=== PATIENT | female | born 1950 | race Caucasian/White ===

== ENCOUNTER 2018-03-09 14:32 | Emergency (ER) | payer OTHER ==
[~2018-03-09] VITALS: Ht 162.6 cm; Wt 70.9 kg
[2018-03-09] MEDS ORDERED: QUET200T PO (14:40)
[2018-03-09] MEDS ORDERED: VITAD400 PO (14:40)
[2018-03-09] MEDS ORDERED: CALC-1038 PO (14:40)
[2018-03-09] MEDS ORDERED: SIMV-260 PO (14:40)
[2018-03-09] MEDS ORDERED: RISP1 PO (14:40)
[2018-03-09] MEDS ORDERED: SODIUM CHLORIDE 0.9% 250 ML IRRIG SOLUTION BOTTLE IRRIG ONE (15:00)
[2018-03-09] MEDS ORDERED: TraMADol HCL 50 MG TABLET PO ONE (15:00)
[2018-03-09] MEDS ORDERED: PERTUSS(ACELL),DIPH,TET VAC/PF 0.5 ML VIAL IM ONE (15:00)
[2018-03-09] MEDS ORDERED: LIDOCAINE HCL 1% 20 ML VIAL INJ ONE (15:30)
[2018-03-09] MEDS ORDERED: LIDOCAINE HCL/PF 1% 5 ML VIAL INJ ONE (15:45)
[2018-03-09 17:50] VITALS: BP 144/79
== END 2018-03-09 18:22 | disposition home or self-care (01) ==
LOC: EMS 14:33
DX: S62.630B Displaced fracture of distal phalanx of right index finger, initial encounter for open fracture (principal); R03.0 Elevated blood-pressure reading, without diagnosis of hypertension; F79 Unspecified intellectual disabilities; Z79.899 Other long term (current) drug therapy; W23.0XXA Caught, crushed, jammed, or pinched between moving objects, initial encounter; Y93.89 Activity, other specified; Y92.89 Other specified places as the place of occurrence of the external cause; Y99.8 Other external cause status
CPT/HCPCS: 12001; 29130; 73130; 90471; 90715; 96372; 99284; J0690; J3490 ×2

== ENCOUNTER 2018-03-11 09:32 | Emergency (ER) | payer OTHER ==
[~2018-03-11] VITALS: Ht 149.9 cm; Wt 56.8 kg
[~2018-03-11 09:32] MED LIST: CALC-1038 PO; QUET200T PO; RISP1 PO; SIMV-260 PO; VITAD400 PO
[2018-03-11] MEDS ORDERED: BACITRACIN 0.9 GM PACKET OINTMENT TP ONE (10:15)
[2018-03-11 10:27] VITALS: BP 118/82
== END 2018-03-11 10:53 | disposition home or self-care (01) ==
LOC: EMS 09:33
DX: Z48.00 Encounter for change or removal of nonsurgical wound dressing (principal)
CPT/HCPCS: 99283